=== PATIENT | female | born 1955 | race Caucasian/White ===

== ENCOUNTER 2019-01-13 16:29 | Emergency (ER) | payer OTHER, SELFPAY ==
[2019-01-13 16:40] VITALS: BP 140/79; PULSE 102; RESP 22; TEMP 36.6; O2SAT 97; BMI 31.7
--- NOTE | 2019-01-13 16:45 | DI.RAD.S_ITS ---
PROCEDURE: XR KNEE LT 3V INDICATIONS: fell TECHNIQUE: 3 views of the knee were acquired. COMPARISON: None. FINDINGS: Bones: No fractures or dislocations. No suspicious bony lesions. There is mild medial femorotibial joint space narrowing seen, with associated remodeling changes including subchondral sclerosis and osteophyte formation along the jointline. Soft tissues: There is a moderate joint effusion. No suspicious soft tissue calcifications. IMPRESSION: Moderate joint effusion. No acute bony abnormality is seen. If there is strong clinical suspicion for internal derangement of this joint, please consider a dedicated MRI for further evaluation (assuming that there is no contraindication to MRI). Dictated by: Sidney Ramos M.D. on 01/13/2019 at 16:10 Approved by: Sidney Ramos M.D. on 01/13/2019 at 16:11
--- NOTE | 2019-01-13 17:52 | PC.NURSE ---
pt states, [place] in the [place], pt [place] on the large rock , taking pictures and she was wearing sandal, fell, occured 417pm, now with left knee pain, left ankle swelling due to back surgery per pt.
--- NOTE | 2019-01-13 18:41 | ED.LOWEXIN ---
HPI - Extremity Injury (Lower) <YURIDIA Vera - Last Filed: 01/13/19 22:48> General Chief Complaint: Extremity Injury, Lower Stated Complaint: fall, Left knee pain Time Seen by Provider: 01/13/19 18:15 Source: patient Mode of arrival: ambulatory Limitations: no limitations History of Present Illness HPI Narrative: CC 3-year-old female with a history of back pain, presents emergency department today after slipping on rocks and falling on her left knee. She states she is experiencing and dull aching 8/10 knee pain that is worse with movement better with rest. She states when she fell the lower portion of her leg was turned inward. She was able to put a little weight on after the fall but was not a able to ambulate with her full weight on her extremity. Patient denies fever, chills, head trauma, chest pain, shortness of breath, history of knee injuries, or abdominal pain. Related Data Allergies Allergy/AdvReac Type Severity Reaction Status Date / Time bacitracin Allergy Rash Verified 01/13/19 17:58 [From Neosporin Plus] lidocaine Allergy Rash Verified 01/13/19 17:58 [From Neosporin Plus] neomycin Allergy Rash Verified 01/13/19 17:58 [From Neosporin Plus] polymyxin B Allergy Rash Verified 01/13/19 17:58 [From Neosporin Plus] pramoxine Allergy Rash Verified 01/13/19 17:58 [From Neosporin Plus] Review of Systems <YURIDIA Vera - Last Filed: 01/13/19 22:48> Review of Systems REVIEW OF SYSTEMS: GENERAL: Denies fever or chills. HENT: No head trauma. EYES: No double vision or vision loss. CARDIOVASCULAR: No chest pain or syncope. RESPIRATORY: No shortness of breath or cough. GASTROINTESTINAL: No nausea, vomiting, diarrhea, or constipation. GENITOURINARY: No flank pain or dysuria. MUSCULOSKELETAL: Complains of left knee pain, see HPI. INTEGUMENTARY: No rash, lesions, or pruritus. NEURO: No numbness, tingling. PSYCH: No behavior or mood changes. PFSH <YURIDIA Vera - Last Filed: 01/13/19 22:48> Medical History Back pain (Acute) Social History Smoking Status: Current every day smoker Social History Smoking Status: Current every day smoker Exam <YURIDIA Vera - Last Filed: 01/13/19 22:48> Initial Vital Signs Initial Vital Signs: Vital Signs Temperature 97.9 F 01/13/19 16:40 Pulse Rate 102 H 01/13/19 16:40 Respiratory Rate 01/13/19 16:40 Blood Pressure 140/79 01/13/19 16:40 Pulse Oximetry 97 01/13/19 16:40 PHYSICAL EXAMINATION: GENERAL: Well groomed, alert, and cooperative. Answers questions promptly and appropriately. Vital signs noted. HENT: Normocephalic, atraumatic. EYES: Symmetrical, sclera white, no periorbital swelling. CARDIOVASCULAR: S1 and S2 sounds normal. Regular rate and rhythm, no murmurs, clicks, or bruits. No pedal edema. RESPIRATORY: Normal respiratory rate, trachea midline, airway patent. No stridor, nasal flaring or accessory muscle use. Lungs are clear in all hale. MUSCULOSKELETAL: Left knee effusion with significant swelling to the upper lateral aspect of the joint. Slight tenderness to palpation of lateral aspect of knee. Laxity Camilo when LCL was tested, drawer test was non-remarkable. King's test were non-remarkable. Patella was movable without pain. Patient was able to ambulate with knee immobilizer and walker without significant difficulty. EXTREMITIES: CMS intact. No pedal edema. SKIN: Warm, dry, soft, appropriate color for ethnicity. No lesions, rashes, or wounds. NEURO: Alert and Oriented X 3. No sensory deficits. PSYCH: Appropriate affect and mood. <Cassidy Rosario DO - Last Filed: 01/16/19 18:47> Initial Vital Signs Initial Vital Signs: Vital Signs Temperature 97.9 F 01/13/19 16:40 Pulse Rate 102 H 01/13/19 16:40 Respiratory Rate 01/13/19 16:40 Blood Pressure 140/79 01/13/19 16:40 Pulse Oximetry 97 01/13/19 16:40 Course <YURIDIA Vera - Last Filed: 01/13/19 22:48> Course Narrative: Patient was able to ambulate with brace and walker, follow-up instructions were given. Orders Ordered: ED Orders 01/13/19 16:45 XR knee LT 3V Stat Consultations Consultation #1: Patient staffed Dr. Rosario. Vital Signs - 8 hr 01/13/19 16:40 01/13/19 18:59 Temperature 97.9 F Pulse Rate 102 H 84 Respiratory Rate 22 18 Blood Pressure 140/79 Blood Pressure [Left Arm] 144/72 H Pulse Oximetry 97 <Cassidy Rosario DO - Last Filed: 01/16/19 18:47> Orders Ordered: ED Orders 01/13/19 16:45 XR knee LT 3V Stat Vital Signs - 8 hr 01/13/19 16:40 01/13/19 18:59 Temperature 97.9 F Pulse Rate 102 H 84 Respiratory Rate 22 18 Blood Pressure 140/79 Blood Pressure [Left Arm] 144/72 H Pulse Oximetry 97 MDM - Extremity Injury (Lower) <YURIDIA Vera - Last Filed: 01/13/19 22:48> Medical Records Attestation: I reviewed the patient's medical records. Lab Data Attestation: I reviewed the patient's lab results. Imaging Data L knee: Radiologist's impression: [place] [address] XRay Report Signed Patient: Debby Golden#: [id number] : 4Acct:[id number] Age/Sex: 63 / FDate of Service: 01/13/19 Loc: ED Accession Number: [id number] Procedure: XR knee LT 3V Ordering Provider: Cassidy Rosario D.O. PROCEDURE: XR KNEE LT 3V INDICATIONS: fell TECHNIQUE: 3 views of the knee were acquired. COMPARISON: None. FINDINGS: Bones: No fractures or dislocations. No suspicious bony lesions. There is mild medial femorotibial joint space narrowing seen, with associated remodeling changes including subchondral sclerosis and osteophyte formation along the jointline. Soft tissues: There is a moderate joint effusion. No suspicious soft tissue calcifications. IMPRESSION: Moderate joint effusion. No acute bony abnormality is seen. If there is strong clinical suspicion for internal derangement of this joint, please consider a dedicated MRI for further evaluation (assuming that there is no contraindication to MRI). Dictated by: Sidney Ramos M.D. on 01/13/2019 at 16:10 Approved by: Sidney Ramos M.D. on 01/13/2019 at 16:[address] [facility] Narrative Medical decision making narrative: Suspect that patient's symptoms are due to a ligament injury, possible LCL due to laxity, as well as mechanism of injury. Low suspicion for fracture due to negative x-ray and patient's ability to ambulate on leg after knee immobilizer was applied. Instructions to follow up with an orthopedic were given, patient was encouraged to use leg as tolerated. Discharge Plan Departure Patient Disposition: Home Clinical Impression: Acute knee pain Qualifiers: Laterality: left Qualified Code(s): M25.562 - Pain in left knee Knee joint laxity Qualifiers: Laterality: left Qualified Code(s): M23.8X2 - Other internal derangements of left knee Discharge Date/Time: 01/13/19 18:59 Interventions: ED Discharge Assessment Last Done: 01/13/19 18:56 Instructions: DI for Knee Sprain Activity Restrictions/Additional Instructions: Thank you for entrusting me with your care today. As discussed, your x-rays negative for any fractures. However, you could have injured a ligament in your knee, please use the knee immobilizer when you are moving around as well as the walker as needed for stability. Rest and elevate her leg as much as possible, follow up with her primary care provider in the next 1-2 weeks. You may take ibuprofen as needed for pain and swelling. Return to the emergency department if he develops chest pain, shortness of breath, fevers, or syncope. Stand Alone Forms: Work Release Note <Cassidy Rosario DO - Last Filed: 01/16/19 18:47> Cosign ED Attending Cosignature Attestation: I was immediately available in the department for consultation, case discussed, plan for immobilization, crutches prn and follow up with orthopedic surgery for suspected ligamentous injury. This documentation has been reviewed and I agree with assessment and plan. Supervised by Cassidy Rosario DO
[2019-01-13 18:59] VITALS: BP 144/72; PULSE 84; RESP 18
== END 2019-01-13 18:59 | disposition home or self-care (01) ==
PROVIDERS: Emergency Provider Nurse Practitioner
DX: M25.562 Pain in left knee (principal); M23.8X2 Other internal derangements of left knee; W01.0XXA Fall on same level from slipping, tripping and stumbling without subsequent striking against object, initial encounter
CPT/HCPCS: 73562; 99282; 99283